=== PATIENT | female | born 2000 | race Caucasian/White ===

== ENCOUNTER → 2022-06-14 | Outpatient (CLI) | payer SELFPAY ==
--- NOTE | 2022-06-14 14:50 | Diagnostic Imaging Report ---
PROCEDURE: MRI lumbar spine without contrast. TECHNIQUE: Multiplanar, multisequence MRI of the lumbar spine was performed without contrast. INDICATION: Low back pain. Lifting injury. COMPARISON: None. FINDINGS: Five lumbar type vertebral bodies are visualized with the last well-formed disc space designated L5-S1. No acute fracture or dislocation is seen in the lumbar spine. Alignment is anatomic. Vertebral body heights are well-maintained. The bone marrow signal is normal. The conus terminates at the L1 level. No mass is seen associated with the conus or nerve roots of the cauda equina. No epidural collection is identified. Degenerative changes are as follows: T12-L1: No significant spinal canal or foraminal stenosis. L1-L2: No significant spinal canal or foraminal stenosis. L2-L3: No significant spinal canal or foraminal stenosis. L3-L4: No significant spinal canal or foraminal stenosis. L4-L5: Prominent central and right paracentral disc extrusion results in moderate spinal canal stenosis and moderate to severe right lateral recess stenosis with mild to moderate right and mild left foraminal narrowing. L5-S1: Broad-based disc bulge with annular fissure results in mild spinal canal narrowing and mild to moderate bilateral foraminal narrowing. Paravertebral soft tissues are unremarkable. IMPRESSION: 1. No acute fracture or dislocation in the lumbar spine. 2. Multilevel degenerative changes in the lumbar spine, greatest at L4-L5 and L5-S1. Dictated by: Dictated on workstation # [id number]
== END ==
LOC: RAD 13:31
PROVIDERS: ATTEND Nurse Practitioner Family
DX: M47.816 Spondylosis without myelopathy or radiculopathy, lumbar region (principal); M47.817 Spondylosis without myelopathy or radiculopathy, lumbosacral region
CPT/HCPCS: 72148

== ENCOUNTER 2022-08-31 03:12 | Emergency (ER) | payer OTHER ==
[~2022-08-31] VITALS: Ht 173 cm; Wt 68.0 kg
[2022-08-31] MEDS ORDERED: LACTATED RINGERS 1,000 ML IV ONE ×2 (03:30→06:30)
[2022-08-31] MEDS ORDERED: cefTRIAXone IV/IM 1,000 MG in NS (IVPB) 50 ML IV ONE (03:30)
[2022-08-31] MEDS ORDERED: TETANUS,DIPTH,PERTUSS P/F (BOOSTRIX) 0.5 ML VIAL IM ONE (03:30)
--- NOTE | 2022-08-31 03:34 | ED Fall/Injury ---
General Chief Complaint: Trauma-Non Activation Stated Complaint: FALL,JAW & RT EAR INJURY Source: patient Exam Limitations: intoxication History of Present Illness Date Seen by Provider: August 31, 2022 Time Seen by Provider: 03:19 Initial Comments PT ARRIVES VIA POV FROM HOME WITH BOYFRIEND PT STATES LESS THAN 30 MINUTES AGO, SHE WAS IN THE KITCHEN AND FELL, LANDING ON HER CHIN ON TILE FLOOR STATES SHE WAS KNOCKED OUT FOR UNKNOWN LENGTH OF TIME. C/O PAIN TO JAW AND RIGHT EAR, WITH BLEEDING FROM RIGHT EAR. SHE STATES HER HEARING IN HER RIGHT EAR IS A LITTLE MUFFLED STATES HER TEETH DON'T LINE UP RIGHT. SHE DOES HAVE A LACERATION TO HER CHIN NO VISION CHANGES NO NECK PAIN NO PARESTHESIAS OR MOTOR DEFICITS NO OTHER INJURIES OR AREAS OF PAIN PT HAS BEEN DRINKING AN UNKNOWN AMOUNT OF ALCOHOL TONIGHT, AND HAS BEEN SNORTING COCAINE TONIGHT. LMP 1 1/2 WEEKS AGO, NO CONTROL LAST TETANUS 2011. PT IS ON SERTRALINE DENIES ANY MEDICAL PROBLEMS PCP [facility] Allergies and Home Medications Allergies Coded Allergies: No Known Drug Allergies (Unverified , 08/31/22) Patient Home Medication List Home Medication List Reviewed: Yes No Active Prescriptions or Reported Meds Review of Systems Review of Systems Constitutional: no symptoms reported Eyes: No Symptoms Reported Ears, Nose, Mouth, Throat: see HPI Respiratory: no symptoms reported Cardiovascular: no symptoms reported Gastrointestinal: no symptoms reported Genitourinary: no symptoms reported Musculoskeletal: no symptoms reported Skin: no symptoms reported Psychiatric/Neurological: See HPI Past Jlfqbzd-Jxdcwm-Rfmhmo Hx Patient Social History Tobacco Use?: No Substance use?: Yes Substance type: Other Additional substance use comme: COCAINE Alcohol Use?: Yes Alcohol type: Beer, Hard Liquor Immunizations Up To Date Tetanus Booster (TDap): More than 5yrs Past Medical History Surgeries: No Respiratory: No Cardiac: No Neurological: No : No Genitourinary: No Gastrointestinal: No Musculoskeletal: No Endocrine: No HEENT: No Cancer: No Psychosocial: Yes Anxiety, Depression Integumentary: No Blood Disorders: No Physical Exam Vital Signs Vital Signs - First Documented 08/31/22 03:18 Temp 36.4 Pulse 92 Resp 18 B/P (MAP) 134/104 (114) Pulse Ox 98 O2 Delivery Room Air Capillary Refill : Height, Weight, BMI Height: '" Weight: lbs. oz. kg; BMI Method: General Appearance: WD/WN, no apparent distress, other (CRYING, TALKING RAPIDLY NON-STOP, SPEECH SLIGHTLY SLURRED, REEKS OF ALCOHOL. ) HEENT: PERRL/EOMI, other (TENDERNESS TO MANDIBLE, WITH TRISMUS. TEETH AND GUMS APPEAR INTACT. LEFT EAR AND TM ARE NORMAL. THERE IS BLOOD FILLING THE RIGHT EAR CANAL, BUT NO ACTIVE BLEEDING AT THIS TIME. TM IS NOT VISUALIZED . 2 CM SUB Q LACERATION TO CHIN) Neck: non-tender, full range of motion, supple, normal inspection Cardiovascular: no murmur, tachycardia Respiratory: normal breath sounds, no respiratory distress, no accessory muscle use Peripheral Pulses: 2+ Dorsalis Pedis (R), 2+ Left Dors-Pedis (L), 2+ Radial Pulses (R), 2+ Radial Pulses (L) Gastrointestinal: non tender, soft Back: normal inspection, no CVA tenderness, no vertebral tenderness Extremities: normal range of motion, non-tender, normal inspection, no pedal edema, no calf tenderness, normal capillary refill Neurologic/Psychiatric: complaint investigations officer II-XII nml as tested, no motor/sensory deficits, alert, oriented x 3 Skin: normal color, warm/dry, other (LACERATION TO CHIN ) Procedures/Interventions Other Wound Location CHIN Wound Length (cm): 2 Wound's Depth, Shape: linear, sub Q Wound Explored: clean Betadine Prep?: No (BETASEPT) Other Closure Supply: Wound Adhesive Progress PT ADAMANTLY REFUSES SUTURES Progress/Results/Core Measures Results/Orders Lab Results Laboratory Tests Test 08/31/22 03:37 08/31/22 04:40 Range/Units White Blood Count 6.4 4.3-11.0 10^3/uL Red Blood Count 4.84 3.80-5.11 10^6/uL Hemoglobin 15.9 11.5-16.0 g/dL Hematocrit 44 35-52 % Mean Corpuscular Volume 92 80-99 fL Mean Corpuscular Hemoglobin 33 25-34 pg Mean Corpuscular Hemoglobin Concent 36 32-36 g/dL Red Cell Distribution Width 11.9 10.0-14.5 % Platelet Count 281 130-400 10^3/uL Mean Platelet Volume 9.4 9.0-12.2 fL Immature Granulocyte % (Auto) 1 % Neutrophils (%) (Auto) 51 42-75 % Lymphocytes (%) (Auto) 39 12-44 % Monocytes (%) (Auto) 7 0-12 % Eosinophils (%) (Auto) 1 0-10 % Basophils (%) (Auto) 1 0-10 % Neutrophils # (Auto) 3.3 1.8-7.8 10^3/uL Lymphocytes # (Auto) 2.5 1.0-4.0 10^3/uL Monocytes # (Auto) 0.5 0.0-1.0 10^3/uL Eosinophils # (Auto) 0.1 0.0-0.3 10^3/uL Basophils # (Auto) 0.0 0.0-0.1 10^3/uL Immature Granulocyte # (Auto) 0.1 0.0-0.1 10^3/uL Prothrombin Time 12.9 12.2-14.7 SEC INR Comment 1.0 0.8-1.4 Activated Partial Thromboplast Time 24 24-35 SEC Sodium Level 141 135-145 MMOL/L Potassium Level 3.6 3.6-5.0 MMOL/L Chloride Level 105 98-107 MMOL/L Carbon Dioxide Level 22 21-32 MMOL/L Anion Gap 14 5-14 MMOL/L Blood Urea Nitrogen 5 L 7-18 MG/DL Creatinine 0.94 0.60-1.30 MG/DL Estimat Glomerular Filtration Rate 87 BUN/Creatinine Ratio 5 Glucose Level 107 H 70-105 MG/DL Calcium Level 9.8 8.5-10.1 MG/DL Corrected Calcium 8.5-10.1 MG/DL Total Bilirubin 0.7 0.1-1.0 MG/DL Aspartate Amino Transf (AST/SGOT) 20 5-34 U/L Alanine Aminotransferase (ALT/SGPT) 13 0-55 U/L Alkaline Phosphatase 83 40-136 U/L Total Protein 8.0 6.4-8.2 GM/DL Albumin 4.9 H 3.2-4.5 GM/DL Serum Test, Qualitative NEGATIVE NEGATIVE Acetaminophen Level < 10 L 10-30 UG/ML Serum Alcohol 235 H <10 MG/DL Urine Color YELLOW Urine Clarity CLEAR Urine pH 7.5 5-9 Urine Specific [place] 1.010 L 1.016-1.022 Urine Protein NEGATIVE NEGATIVE Urine Glucose (UA) NEGATIVE NEGATIVE Urine Ketones NEGATIVE NEGATIVE Urine Nitrite NEGATIVE NEGATIVE Urine Bilirubin NEGATIVE NEGATIVE Urine Urobilinogen 0.2 < = 1.0 MG/DL Urine Leukocyte Esterase NEGATIVE NEGATIVE Urine RBC (Auto) NEGATIVE NEGATIVE Urine RBC NONE /HPF Urine WBC NONE /HPF Urine Squamous Epithelial Cells 0-2 /HPF Urine Crystals NONE /LPF Urine Bacteria NEGATIVE /HPF Urine Casts NONE /LPF Urine Mucus NEGATIVE /LPF Urine Culture Indicated NO Urine Opiates Screen NEGATIVE NEGATIVE Urine Oxycodone Screen NEGATIVE NEGATIVE Urine Methadone Screen NEGATIVE NEGATIVE Urine Propoxyphene Screen NEGATIVE NEGATIVE Urine Barbiturates Screen NEGATIVE NEGATIVE Ur Tricyclic Antidepressants Screen NEGATIVE NEGATIVE Urine Phencyclidine Screen NEGATIVE NEGATIVE Urine Amphetamines Screen NEGATIVE NEGATIVE Urine Methamphetamines Screen NEGATIVE NEGATIVE Urine Benzodiazepines Screen NEGATIVE NEGATIVE Urine Cocaine Screen POSITIVE H NEGATIVE Urine Cannabinoids Screen NEGATIVE NEGATIVE My Orders Orders - LIANNA YATES DO Ed Iv/Invasive Line Start (08/31/22 03:25) Monitor-Rhythm Ecg Trace Only (08/31/22 03:25) Ct Head/Face/Cervical Wo (08/31/22 03:25) Acetaminophen (08/31/22 03:25) Alcohol (08/31/22 03:25) Cbc With Automated Diff (08/31/22 03:25) Comprehensive Metabolic Panel (08/31/22 03:25) Drug Screen Stat (Urine) (08/31/22 03:25) Hcg,Qualitative Serum (08/31/22 03:25) Protime With Inr (08/31/22 03:25) Partial Thromboplastin Time (08/31/22 03:25) Ua Culture If Indicated (08/31/22 03:25) Ed Iv/Invasive Line Start (08/31/22 03:25) Lactated Ringers (Lr 1000 Ml Iv Solution (08/31/22 03:30) Dipht,Pertuss(Acell),Tet Adult (Boostrix (08/31/22 03:30) Ceftriaxone Iv/Im (Rocephin Iv/Im) (08/31/22 03:30) Clindamycin 600 Mg/50 Ml Ivpb (Cleocin P (08/31/22 06:00) Fentanyl Inj (Sublimaze Injection) (08/31/22 06:00) Ed Iv/Invasive Line Start (08/31/22 06:30) Lactated Ringers (Lr 1000 Ml Iv Solution (08/31/22 06:30) Ed Iv/Invasive Line Start (08/31/22 06:32) Ns Iv 1000 Ml (Sodium Chloride 0.9%) (08/31/22 06:45) Medications Given in ED Vital Signs/I&O 08/31/22 08/31/22 03:18 09:05 Temp 36.4 Pulse 92 88 Resp 18 18 B/P (MAP) 134/104 (114) 126/82 Pulse Ox 98 98 O2 Delivery Room Air Room Air Progress Progress Note : Progress Note GIVEN: -IV FLUIDS -DPT VACCINE -ROCEPHIN -CLINDAMYCIN -FENTANYL FOR PAIN NO DETERIORATION IN PT'S CONDITION DURING ER STAY DISCUSSED TEST RESULTS, NEED FOR TRANSFER AND PT IS AGREEABLE TO PLAN Diagnostic Imaging Comments CT HEAD/MAXILLOFACIALS/CERVICAL SPINE--PER [facility] VIA FAX AT 0538 -NON-DISPLACED FRACTURE OF CONDYLAR PROCESS OF RIGHT MANDIBLE AND FRACTURE OF THE POSTERIOR SUPERIOR WALL OF THE CONDYLAR FOSSA, EXTENDING THROUGH THE [place]-INFERIOR EAR CANAL. -NO FLUID IN THE MIDDLE EAR OR DISPLACEMENT OF THE OSSICLES -NO FLUID IN MASTOID CELLS. -NO INTRACRANIAL HEMORRHAGE OR FRACTURE OF SKULL -MILDLY OFF-CENTER POSITIONING OF THE DENS, LIKELY POSITIONAL. -NO MALALIGNMENT OF THE LATERAL MASSES -NO ATLANTO-DENTAL INTERVAL WIDENING -MILD NEREIDA LISTHESIS ST C2-C3 AND C3-C4 WITHOUT FRACTURE OR FACET SUBLUXATION, MAY ALSO BE POSITIONAL -NO FRACTURE. Reviewed: Reviewed by Me Departure Communication (Admissions) 0539--ATTEMPTING TO CONTACT DR. JEAN-BAPTISTE, ORAL SURGEON, NO ANSWER. MESSAGE LEFT ON MACHINE 0547--SPOKE WITH DR. DYER, ENT, HE ADVISES ORAL/MAXILLOFACIAL SURGEON OR HIGHER LEVEL ENT SERVICES THAN CAN BE PROVIDED HERE. 0548--CALLED [facility] PAGING ENT SUPERVISOR ASBESTOS REMOVAL 0555--SPOKE WITH DR. FEDERICO LOZADA, ENT. HE ADVISES TO SEND PT TO [facility] AND HE WILL SEE PT THERE. HE ADVISES TO ADD CLINDAMYCIN 0600--SPOKE WITH DR. Taj TAVARES, ER PHYSICIAN, ACCEPTS PT FOR TRANSFER. Impression Primary Impression: UNWITNESSED FALL FROM STANDING Additional Impressions: Head injury with loss of consciousness Alcohol intoxication Cocaine use OPEN RIGHT MANDIBULAR CONDYLE FRACTURE INTO EAR CANAL Chin laceration Glfwszdsps-nmahhuyrm-dkmjiif (DPT) vaccination administered at current visit Disposition: XFER SHT-TRM HOSP Condition: Stable Transfer Transfer Reason: Exceeds level of care (NEED FOR ENT/MAXILLFACIAL SURGERY UNAVAILABLE HERE) [facility] Method of Transfer: EMS Departure-Patient Inst. Referrals: NO,LOCAL PHYSICIAN (PCP/Family) Primary Care Physician Scripts No Active Prescriptions or Reported Meds LIANNA YATES DO August 31, 2022 03:34
[2022-08-31 03:46] LABS: BASOPHILS % (AUTO) 1 % (0-10); EOSINOPHILS # (AUTO) 0.1 10^3/uL (0.0-0.3); EOSINOPHILS % (AUTO) 1 % (0-10); HEMATOCRIT 44 % (35-52); HEMOGLOBIN 15.9 g/dL (11.5-16.0); LYMPHOCYTES # (AUTO) 2.5 10^3/uL (1.0-4.0); LYMPHOCYTES % (AUTO) 39 % (12-44); MEAN CORPUSCULAR HEMOGLOBIN 33 pg (25-34); MEAN CORPUSCULAR HGB CONC 36 g/dL (32-36); MEAN CORPUSCULAR VOLUME 92 fL (80-99); MEAN PLATELET VOLUME 9.4 fL (9.0-12.2); MONOCYTES # (AUTO) 0.5 10^3/uL (0.0-1.0); MONOCYTES % (AUTO) 7 % (0-12); NEUTROPHILS # (AUTO) 3.3 10^3/uL (1.8-7.8); NEUTROPHILS % (AUTO) 51 % (42-75); PLATELET COUNT 281 10^3/uL (130-400); WHITE BLOOD COUNT 6.4 10^3/uL (4.3-11.0)
[2022-08-31 03:55] LABS: ALBUMIN 4.9 GM/DL (3.2-4.5); CHLORIDE 105 MMOL/L (98-107); POTASSIUM 3.6 MMOL/L (3.6-5.0); SODIUM 141 MMOL/L (135-145)
[2022-08-31 03:56] LABS: CALCIUM 9.8 MG/DL (8.5-10.1)
[2022-08-31 03:57] LABS: GLUCOSE 107 MG/DL (70-105)
[2022-08-31 03:59] LABS: BILIRUBIN,TOTAL 0.7 MG/DL (0.1-1.0); CARBON DIOXIDE 22 MMOL/L (21-32); PROTHROMBIN TIME PATIENT 12.9 SEC (12.2-14.7)
[2022-08-31 04:01] LABS: ALKALINE PHOSPHATASE 83 U/L (40-136); CREATININE SERUM 0.94 MG/DL (0.60-1.30); GFR ESTIMATED 87
[2022-08-31 04:02] LABS: BUN/CREATININE RATIO 5
[2022-08-31 04:04] LABS: ALANINE AMINOTRANSFERASE 13 U/L (0-55)
[2022-08-31 04:08] LABS: ACETAMINOPHEN < 10 UG/ML (10-30)
[2022-08-31 04:46] LABS: BILIRUBIN,URINE NEGATIVE (NEGATIVE); CLARITY,URINE CLEAR; COLOR,URINE YELLOW; GLUCOSE, URINE (UA) NEGATIVE (NEGATIVE); KETONES,URINE NEGATIVE (NEGATIVE); LEUKOCYTE ESTERASE ,URINE NEGATIVE (NEGATIVE); NITRITE,URINE NEGATIVE (NEGATIVE); PH,URINE 7.5 (5-9); PROTEIN,URINE NEGATIVE (NEGATIVE)
[2022-08-31 05:02] LABS: AMPHETAMINE SCREEN, URINE NEGATIVE (NEGATIVE); BACTERIA,URINE NEGATIVE /HPF; BARBITURATE SCREEN URINE NEGATIVE (NEGATIVE); BENZODIAZEPINES SCREEN URINE NEGATIVE (NEGATIVE); CANNABINOID SCREEN, URINE NEGATIVE (NEGATIVE); COCAINE SCREEN URINE POSITIVE (NEGATIVE); METHADONE STAT NEGATIVE (NEGATIVE); OPIATE SCREEN URINE NEGATIVE (NEGATIVE); OXYCODONE STAT NEGATIVE (NEGATIVE); PROPOXYPHENE STAT NEGATIVE (NEGATIVE); SQUAMOUS EPITHELIAL CELL,UR 0-2 /HPF; TRICYCLIC ANTIDEPRESSANTS SCRE NEGATIVE (NEGATIVE)
[2022-08-31] MEDS ORDERED: CLINDAMYCIN 600 MG/50 ML IVPB 50 ML IV ONE (06:00)
[2022-08-31] MEDS ORDERED: fentaNYL INJ 100 MCG/2 ML AMP IVP ONE ×2 (06:00→09:00)
--- NOTE | 2022-08-31 06:03 | Diagnostic Imaging Report ---
PROCEDURE: CT head, face, and cervical spine without contrast. TECHNIQUE: Multiple contiguous axial images were obtained through the head, neck, and facial bones without the use of intravenous contrast. Sagittal and coronal reformations through the cervical spine and facial bones were also performed. Auto Exposure Controls were utilized during the CT exam to meet ALARA standards for radiation dose reduction. PROCEDURE: CT head, face, cervical spine without contrast. TECHNIQUE: Multiple contiguous axial images were obtained through the head, neck, and facial bones without the use of intravenous contrast. Sagittal and coronal reformations through the cervical spine and facial bones were also performed. All CT scans use one or more of the following dose optimizing techniques: automated exposure control, MA and/or KvP adjustment based on a patient size and exam type, or iterative reconstruction. INDICATION: Head, face and neck trauma COMPARISON: None available. FINDINGS: Head: No hyperdense hemorrhage or space-occupying mass. No hydrocephalus or midline shift. No evidence of territorial infarct. Basilar cisterns are patent. No focal scalp swelling. No skull fracture. The mastoid air cells are clear. Face: No fracture of the nasal bones, osseous nasal septum or anterior nasal spine. The orbits, zygomatic arches, maxillary sinus anders, alveolar ridge of the maxilla and pterygoid plates are all intact. Nondisplaced fracture of the right mandibular condyle with the temporomandibular joint remaining in normal alignment. The anterior wall of the right external auditory canal/posterior wall of the condylar fossa. Paranasal sinuses are clear. No globe rupture or retrobulbar hematoma. Cervical spine: No acute fracture or traumatic malalignment. No high-grade spinal canal narrowing. Airway is patent. No cervical lymphadenopathy. Visualized thyroid is normal. IMPRESSION: 1. No acute intracranial process or skull fracture. 2. Acute nondisplaced fracture of the right mandibular condyle and the posterior wall of the temporal bones condylar fossa. No middle ear fluid or involvement of the otic capsule. 3. No acute fracture or traumatic malalignment of the cervical spine. 4. Findings are in agreement with the preliminary report. Dictated by: Dictated on workstation # [id number]
[2022-08-31] MEDS ORDERED: NS IV 1000 ML 1,000 ML IV SCH (06:45)
[2022-08-31 09:05] VITALS: BP 126/82
== END 2022-08-31 09:07 | disposition short-term general hospital (02) ==
LOC: EDUNIT# 03:12 → ER 03:15
DX: S06.9X9A Unspecified intracranial injury with loss of consciousness of unspecified duration, initial encounter (principal); S02.611B Fracture of condylar process of right mandible, initial encounter for open fracture; F14.90 Cocaine use, unspecified, uncomplicated; F10.129 Alcohol abuse with intoxication, unspecified; Y90.7 Blood alcohol level of 200-239 mg/100 ml; Z23 Encounter for immunization; Z28.310 Unvaccinated for COVID-19; W18.30XA Fall on same level, unspecified, initial encounter; Y92.000 Kitchen of unspecified non-institutional (private) residence as the place of occurrence of the external cause
CPT/HCPCS: 70450; 70486; 72125; 80053; 80306; 81000; 84703; 85025; 85610; 85730; 99285; G0480 ×2; 36415; 80320; 80329; 90715